=== PATIENT | female | born 2005 | race Caucasian/White ===

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

== ENCOUNTER → 2025-09-25 | Outpatient (REF) | payer OTHER, SELFPAY ==
[2025-09-25 18:33] LABS: BASO # 0.1 10^3/uL (0.0-0.2); BASO % 0.8 % (0.0-1.0); EOS # 0.2 10^3/uL (0.0-0.5); EOS % 2.0 % (0.0-3.0); LYMPH # 3.0 10^3/uL (1.5-5.0); LYMPH % 31.1 % (24.0-44.0); MONO # 0.8 10^3/uL (0.0-0.8); MONO % 8.3 % (2.0-8.0); NEUTROPHILS # 5.5 10^3/uL (1.5-8.5); NEUTROPHILS % 57.5 % (36.0-66.0); PLATELET COUNT, AUTOMATED 435 10^3/uL (150-450)
[2025-09-25 18:42] LABS: LUTEINIZING HORMONE 11.6 mIU/ML
[2025-09-25 18:43] LABS: PROLACTIN 8.61 NG/ML
[2025-09-25 18:44] LABS: FREE T4 1.23 NG/DL (0.83-1.43)
[2025-09-25 18:46] LABS: ALT/SGPT 93 U/L (7.0-40); AST/SGOT 33 U/L (<34); CALCIUM LEVEL 9.5 MG/DL (8.5-10.1); CARBON DIOXIDE LEVEL 27 MMOL/L (20-31); CHLORIDE LEVEL 105 MMOL/L (98-107); CHOLESTEROL LEVEL 205 MG/DL (<200); CHOLESTEROL RISK RATIO 4.30 (<5); CREATININE FOR GFR 0.64 MG/DL (0.55-1.30); GLOMERULAR FILTRATION RATE > 90.0 (>60); LDL CHOLESTEROL 130.6 MG/DL (<100); NON-HDL-C 157.4 MG/DL; POTASSIUM SERUM 4.4 MMOL/L (3.5-5.1); SODIUM LEVEL 142 MMOL/L (136-145); TESTOSTERONE 76 NG/DL (14-76); TRIGLYCERIDES LEVEL 134 MG/DL (<150)
[2025-09-25 19:26] LABS: ESTIMATED AVERAGE GLUCOSE 100.0 MG/DL (60-110)
[2025-09-28 02:57] LABS: DEHYDROEPIANDROSTERONE SULFATE 351 mcg/dL (44-286)
[2025-10-03 18:03] LABS: ESTROGENS TOTAL 713 pg/mL
== END ==
LOC: M SFHCCLAY 17:41
PROVIDERS: ATTEND Nurse Practitioner Family
DX: N91.2 Amenorrhea, unspecified (principal); F41.8 Other specified anxiety disorders; T81.49XA Infection following a procedure, other surgical site, initial encounter; Z90.49 Acquired absence of other specified parts of digestive tract; Y82.9 Unspecified medical devices associated with adverse incidents